=== PATIENT | male | born 2000 | race Caucasian/White ===

== ENCOUNTER 2020-05-04 06:47 | Day surgery (SDC) | payer MEDICAID ==
[~2020-05-04] VITALS: Ht 167.6 cm; Wt 59.0 kg
[2020-05-04] MEDS ORDERED: fentaNYL citrate 0.05 MG/ML VIAL ONE (07:42)
[2020-05-04] MEDS ORDERED: MIDAZOLAM 2 MG/2 ML VIAL ONE (07:42)
[2020-05-04] MEDS ORDERED: LIDOCAINE VISCOUS 2% 20 ML UDC ONE (07:42)
[2020-05-04] MEDS ORDERED: diphenhydrAMINE 50 MG/ML VIAL ONE (07:42)
[2020-05-04] MEDS ORDERED: fentaNYL citrate 0.05 MG/ML VIAL IVP ONE (09:20)
[2020-05-04] MEDS ORDERED: diphenhydrAMINE 50 MG/ML VIAL IVP ONE (09:20)
[2020-05-04] MEDS ORDERED: MIDAZOLAM 2 MG/2 ML VIAL IVP ONE (09:20)
== END 2020-05-04 09:58 | disposition home or self-care (01) ==
LOC: MDS 06:47 → MFCC 06:56 → MDS 09:58
PROVIDERS: ATTEND Internal Medicine Gastroenterology
DX: R10.9 Unspecified abdominal pain (principal); K21.9 Gastro-esophageal reflux disease without esophagitis
CPT/HCPCS: 43239; J1200; J2250; J3010